=== PATIENT | female | born 1960 | race Caucasian/White ===

== ENCOUNTER → 2016-06-03 | Outpatient (CLI) | payer OTHER ==
[~2016-06-03] MED LIST: AMITIZA8 MCG PO; AMITRIPTYLINE H25 MG PO; CITALOPRAM HBR40 MG PO; HYDROCODON-ACE1 EAC9 PO; LYRICA75 MG PO; MULTIVITAMIN1 UDCAP PO; NAMENDA5 MG PO; SUPER B COMPLEX1 CAP PO; TOPIRAMATE25 M1 PO; VITAMIN C500 M1 PO; VITAMIN D32000 UNIT PO; VITAMIN D400 UNI2 PO; VOLTAREN100 GM TOP
--- NOTE | ~2016-06-03 | MR17 ---
[facility] A Service of [facility] & [facility] RADIOLOGY TEXT RESULTS PATIENT: RUSTY TENORIO LOCATION: [facility] : 60 UNIT #: [id number] AGE: [address]: Avery Foley MD SEX: F ORDER DR: [id number] [address] [address] [id number] O MR#: [id number] Acc #: [id number] NAME: RUSTY TENORIO : 1960 SEX: F STUDY DATE/TIME: 06/03/2016 15:48 UNIT: [facility] ROOM: STUDY DESCRIPTION: MR Brain WWo Contrast Attending Physician: Avery Foley M.D. Referring Physician: Avery Foley M.D. Ordering Physician: Avery Foley M.D. Primary Care Physician: Avery Foley M.D. MRI CENTER REPORT This report is preliminary unless electronic signature is present. EXAM MRI of the brain with and without contrast dated 06/03/2016 COMPARISON MRI brain with and without contrast dated 01/04/2016. HISTORY Prior history of malignancy. Increased frequency of headaches now. Patient had prior surgery in the left occipital region. Followup. FINDINGS Multisequence, multiplanar imaging of the brain was obtained with and without contrast. 12 mL of MultiHance was administered intravenously. There is a left occipital craniotomy which extends to the adjacent inferior parietal region. Underlying resection cavity, surrounding gliosis and T2 signal changes are redemonstrated. There is a peripheral rim of hypointense gradient signal which could represent hemosiderin deposition from prior surgery, stable appearance. Associated minimal calcification cannot be excluded. There is a focal stable 3.5 mm nodular enhancement along the anterior aspect of the resection cavity with some discontinued minimal peripheral enhancement. Stable. No new enhancing lesions elsewhere in the brain. No acute stroke, hydrocephalus or midline shift. IMPRESSION No significant interval change. Dictated by... Reynaldo Pantoja M.D. THIS IS AN ELECTRONICALLY VERIFIED REPORT [facility] A Service of [facility] & [facility] RADIOLOGY TEXT RESULTS PATIENT: RUSTY TENORIO LOCATION: [facility] : 60 UNIT #: [id number] AGE: [address]: Avery Foley MD SEX: F ORDER DR: Reynaldo Pantoja M.D. at 06/06/2016 3:57 PM CPR/mjs TD: 06/06/2016 11:25 JOB #: [id number] MRI CENTER REPORT Page 1 of 1
== END | disposition home or self-care (01) ==
LOC: SMRI 14:31
DX: C50.411 Malignant neoplasm of upper-outer quadrant of right female breast (principal); C77.1 Secondary and unspecified malignant neoplasm of intrathoracic lymph nodes; C79.31 Secondary malignant neoplasm of brain; R41.3 Other amnesia
CPT/HCPCS: 70553; A9581

== ENCOUNTER → 2016-10-20 | Outpatient (CLI) | payer OTHER ==
--- NOTE | ~2016-10-20 | MR17 ---
[facility] A Service of [facility] & [facility] RADIOLOGY TEXT RESULTS PATIENT: RUSTY TENORIO LOCATION: [facility] : 60 UNIT #: [id number] AGE: [address]: Avery Foley MD SEX: F ORDER DR: [id number] [address] [address] [id number] O MR#: [id number] Acc #: [id number] NAME: RUSTY TENORIO : 1960 SEX: F STUDY DATE/TIME: 10/20/2016 8:54 UNIT: [facility] ROOM: STUDY DESCRIPTION: MR Brain WWo Contrast Attending Physician: Avery Foley M.D. Referring Physician: Avery Foley M.D. Ordering Physician: Avery Foley M.D. Primary Care Physician: Avery Foley M.D. MRI CENTER REPORT This report is preliminary unless electronic signature is present. EXAM MRI of the brain with and without contrast dated 10/20/2016 COMPARISON MRI of the brain with and without contrast dated 01/04/2016. HISTORY Visual changes bilaterally for about a month. Headaches. Diagnosed with right breast cancer in 2009 and brain cancer in 2012. First brain surgery in 2012. FINDINGS Multisequence, multiplanar imaging of the brain was obtained with and without contrast. 11 mL of MultiHance was administered intravenously. Status post left parietooccipital craniotomy with underlying 1.4 x 0.9 cm resection cavity with surrounding areas of increased T2 signal nonenhancing changes, slightly decreased when compared to the prior study from last year. It is probably predominantly gliosis given the lack of edema in the adjacent structures. Punctate tiny few hyperintense T2-signal lesions are noted in bifrontal lobes. No enhancing new lesions, hydrocephalus or midline shift. Tiny amount of hemosiderin deposition is noted in the postoperative bed without any new hemorrhage elsewhere. Thick slices through the sella with the pituitary gland, pineal region and upper cervical spine do not demonstrate any significant abnormality. Vascular flow voids of the major cerebral arteries and dural venous sinuses are not completely occluded in these thicker slices. Minimal S-shaped nasal septal deviation is noted. Paranasal sinuses, mastoid air cells and orbits with the ocular structures do not demonstrate any significant abnormality. IMPRESSION 1. Postoperative changes are noted in the left parietooccipital region with underlying resection cavity and surrounding minimal hemosiderin STS. [facility] A Service of [facility] & [facility] RADIOLOGY TEXT RESULTS PATIENT: RUSTY TENORIO LOCATION: [facility] : 60 UNIT #: [id number] AGE: [address]: Avery Foley MD SEX: F ORDER DR: john. Increased T2-signal appears to have slightly decreased since last year. Given the lack of adjacent edema, it is probably further involving gliosis. 2. Minimal punctate nonenhancing tiny hyperintense T2-signal lesions are noted in the white matter particularly in bifrontal lobes, likely related to minimal chronic microvascular ischemic change or migraine based on age and statistics. 3. No new enhancing metastatic lesions, hydrocephalus, acute stroke or midline shift. Dictated by... Reynaldo Pantoja M.D. THIS IS AN ELECTRONICALLY VERIFIED REPORT Reynaldo Pantoja M.D. at 10/25/2016 2:43 PM CPR/trey TD: 10/21/2016 07:00 JOB #: [id number] MRI CENTER REPORT Page 1 of 1
== END | disposition home or self-care (01) ==
LOC: SMRI 08:08
DX: R51 Headache (principal); H53.10 Unspecified subjective visual disturbances; R11.0 Nausea; Z98.890 Other specified postprocedural states
CPT/HCPCS: 70553; A9581